=== PATIENT | male | born 1980 | race Caucasian/White ===

== ENCOUNTER 2021-09-18 13:10 | Inpatient (IN) | payer OTHER ==
[~2021-09-18] VITALS: Ht 165.1 cm; Wt 75.7 kg
[2021-09-18] MEDS ORDERED: LEVE250T4 PO (13:28)
[2021-09-18 14:02] LABS: BASOPHILS % (AUTO) 0.4 % (0.0-2.0); EOSINOPHILS % (AUTO) 0.1 % (1.0-6.0); HEMATOCRIT 40.8 % (41-53); HEMOGLOBIN 13.8 g/dL (13.5-17.5); LYMPHOCYTES # (AUTO) 2.3 K/uL (1.0-4.8); LYMPHOCYTES % (AUTO) 24.4 % (22.0-44.0); MEAN CORPUSCULAR HGB CONC 33.8 G/dL (31.0-37.0); MEAN CORPUSCULAR VOLUME 89 fL (80-100); MONOCYTES # (AUTO) 0.6 K/uL (0.1-1.0); MONOCYTES % (AUTO) 5.8 % (2.0-9.0); NEUTROPHILS # (AUTO) 6.7 K/uL (1.8-7.7); NEUTROPHILS % (AUTO) 69.3 % (40.0-70.0); PLATELET COUNT (AUTO) 349 K/uL (150-450); RED BLOOD CELL COUNT(AUTO) 4.59 MIL/uL (4.50-5.90); RED CELL DISTRIBUTION WIDTH 14.1 % (11.5-14.5)
[2021-09-18 14:14] LABS: ANION GAP 9 mmol/L (8-16); CALCIUM, TOTAL 9.3 mg/dL (8.8-10.5); CARBON DIOXIDE 26 mmol/L (22-29); CHLORIDE 106 mmol/L (98-107); CREATININE 0.97 mg/dL (0.60-1.30); GLOMERULAR FILTR. RATE CALC > 60 mL/min (>60); GLUCOSE,RANDOM 160 mg/dL (70-110); POTASSIUM 3.4 mmol/L (3.5-5.1); SODIUM SERUM 141 mmol/L (136-145); UREA NITROGEN, BLOOD 17 mg/dL (7-18)
[2021-09-18 14:14] LABS: COVID AG,FIA SOURCE NASOPHARYNGEAL
[2021-09-18 14:28] LABS: ALANINE AMINOTRANSFERASE 86 U/L (12-78); ALBUMIN 4.2 g/dL (3.4-5.0); ALKALINE PHOSPHATASE 87 U/L (46-116); ASPARTATE AMINOTRANSFERASE 28 U/L (15-37); BILIRUBIN,TOTAL 0.5 mg/dL (0.1-1.0); CHOL/HDL RATIO 5.1 (4.2-7.3); CHOLESTEROL 215 mg/dL (131-200); FREE T4 (FREE THYROXINE) 0.99 ng/dL (0.76-1.46); HDL CHOLESTEROL 42 mg/dL (40-60); LDL CHOL (CALC.) 145 mg/dL (0-130); THYROID STIMULATING HORMONE 1.33 uIU/mL (0.36-3.74); TOTAL PROTEIN, SERUM 8.9 g/dL (6.4-8.2); TRIGLYCERIDES 141 mg/dL (15-150)
[2021-09-18] MEDS ORDERED: POTASSIUM CHLORIDE 10% 40 MEQ/30 ML LIQUID UDCUP PO ONE (15:15)
[2021-09-18] MEDS ORDERED: ACETAMINOPHEN 325 MG TABLET PO PRN (15:30)
[2021-09-18] MEDS ORDERED: IPRATROPIUM BROMIDE 0.5 MG/2.5 ML NEB SOLUTION NEB PRN (15:30)
[2021-09-18] MEDS ORDERED: BISACODYL 10 MG RECTAL RECTAL SUPPOSITORY PR PRN (15:30)
[2021-09-18] MEDS ORDERED: ALBUTEROL SULFATE 2.5 MG/0.5 ML NEB SOLUTION NEB PRN (15:30)
[2021-09-18] MEDS ORDERED: MAGNESIUM HYDROXIDE SUSPENSION 30 ML UDCUP PO PRN (15:30)
[2021-09-18] MEDS ORDERED: DOCUSATE SODIUM 100 MG CAPSULE PO PRN (15:30)
[2021-09-18] MEDS ORDERED: 0.9% SODIUM CHLORIDE 10 ML SYRINGE IVP PRN (15:30)
[2021-09-18] MEDS ORDERED: ONDANSETRON HCL 4 MG/2 ML VIAL IVP PRN (15:30)
[2021-09-18 18:56] LABS: AMPHET/METH SCREEN,URINE NEGATIVE (NEGATIVE); BARBITURATE SCREEN, URINE NEGATIVE (NEGATIVE); BENZODIAZEPINES SCREEN,URINE NEGATIVE (NEGATIVE); CANNABINOID SCREEN,URINE NEGATIVE (NEGATIVE); COCAINE SCREEN,URINE NEGATIVE (NEGATIVE); METHADONE SCREEN, URINE NEGATIVE (NEGATIVE); OPIATE SCREEN,URINE NEGATIVE (NEGATIVE)
[2021-09-18 19:02] LABS: PHENCYCLIDINE SCREEN,URINE NEGATIVE (NEGATIVE)
[2021-09-18 20:16] VITALS: BP 130/79
[2021-09-18] MEDS: LevETIRAcetam 250 MG TABLET PO SCH (20:40)
[2021-09-19 04:09] VITALS: BP 133/83
[2021-09-19 07:17] VITALS: BP 120/86
[2021-09-19 08:03] LABS: BASOPHILS % (AUTO) 0.5 % (0.0-2.0); EOSINOPHILS % (AUTO) 0.7 % (1.0-6.0); HEMATOCRIT 40.3 % (41-53); HEMOGLOBIN 13.6 g/dL (13.5-17.5); LYMPHOCYTES # (AUTO) 2.8 K/uL (1.0-4.8); LYMPHOCYTES % (AUTO) 34.2 % (22.0-44.0); MEAN CORPUSCULAR HEMOGLOBIN 30.3 pg (26.0-34.0); MEAN CORPUSCULAR HGB CONC 33.8 G/dL (31.0-37.0); MEAN CORPUSCULAR VOLUME 90 fL (80-100); MONOCYTES # (AUTO) 0.7 K/uL (0.1-1.0); MONOCYTES % (AUTO) 8.2 % (2.0-9.0); NEUTROPHILS # (AUTO) 4.6 K/uL (1.8-7.7); NEUTROPHILS % (AUTO) 56.4 % (40.0-70.0); PLATELET COUNT (AUTO) 309 K/uL (150-450); RED BLOOD CELL COUNT(AUTO) 4.49 MIL/uL (4.50-5.90); RED CELL DISTRIBUTION WIDTH 14.1 % (11.5-14.5)
[2021-09-19] MEDS: LevETIRAcetam 250 MG TABLET PO SCH ×2 (08:14→20:22)
[2021-09-19 08:32] LABS: ALANINE AMINOTRANSFERASE 85 U/L (12-78); ALBUMIN 3.8 g/dL (3.4-5.0); ALKALINE PHOSPHATASE 85 U/L (46-116); ANION GAP 7 mmol/L (8-16); ASPARTATE AMINOTRANSFERASE 38 U/L (15-37); BILIRUBIN,TOTAL 0.7 mg/dL (0.1-1.0); CALCIUM, TOTAL 9.2 mg/dL (8.8-10.5); CARBON DIOXIDE 28 mmol/L (22-29); CHLORIDE 107 mmol/L (98-107); GLOMERULAR FILTR. RATE CALC > 60 mL/min (>60); GLUCOSE,RANDOM 104 mg/dL (70-110); POTASSIUM 4.5 mmol/L (3.5-5.1); SODIUM SERUM 142 mmol/L (136-145); TOTAL PROTEIN, SERUM 8.2 g/dL (6.4-8.2); UREA NITROGEN, BLOOD 14 mg/dL (7-18)
[2021-09-19 16:05] VITALS: BP 132/92
[2021-09-19] MEDS: BusPIRone HCL 5 MG TABLET PO SCH ×2 (16:27→20:19)
[2021-09-19] MEDS: ARIPiprazole 5 MG TABLET PO SCH (16:27)
[2021-09-19 19:45] VITALS: BP 139/94
[2021-09-19] MEDS: DOLUTEGRAVIR SODIUM 50 MG TABLET PO SCH (20:19)
[2021-09-20 04:10] VITALS: BP 137/95
[2021-09-20 07:40] VITALS: BP 146/97
[2021-09-20] MEDS: DOLUTEGRAVIR SODIUM 50 MG TABLET PO SCH (08:43)
[2021-09-20] MEDS: LevETIRAcetam 250 MG TABLET PO SCH ×2 (08:43→20:38)
[2021-09-20] MEDS: ARIPiprazole 5 MG TABLET PO SCH (08:43)
[2021-09-20] MEDS: BusPIRone HCL 5 MG TABLET PO SCH ×2 (08:43→20:38)
[2021-09-20 15:51] VITALS: BP 140/95
[2021-09-20 19:58] VITALS: BP 143/94
[2021-09-21 05:17] VITALS: BP 145/94
[2021-09-21 07:56] VITALS: BP 120/79
[2021-09-21] MEDS: ARIPiprazole 5 MG TABLET PO SCH (08:43)
[2021-09-21] MEDS: DOLUTEGRAVIR SODIUM 50 MG TABLET PO SCH (08:43)
[2021-09-21] MEDS: BusPIRone HCL 5 MG TABLET PO SCH ×2 (08:43→20:22)
[2021-09-21] MEDS: LevETIRAcetam 250 MG TABLET PO SCH ×2 (08:43→20:22)
[2021-09-21 15:42] VITALS: BP 126/91
[2021-09-21] MEDS ORDERED: ARIP5TAB37 PO ×2 (16:34→16:38)
[2021-09-21] MEDS ORDERED: DOLU50TA PO (16:38)
[2021-09-21] MEDS ORDERED: BUSP5TAB20 PO (16:38)
[2021-09-21 19:40] VITALS: BP 135/93
[2021-09-22 04:45] VITALS: BP 140/96
== END 2021-09-22 07:10 | DRG 885 ==
LOC: EMS 13:18 → 6S 18:37
PROVIDERS: ADMIT Internal Medicine; ATTEND Internal Medicine
DX: F25.1 Schizoaffective disorder, depressive type (principal); R45.851 Suicidal ideations; E87.6 Hypokalemia; G40.909 Epilepsy, unspecified, not intractable, without status epilepticus; Z20.822 Contact with and (suspected) exposure to COVID-19; F41.0 Panic disorder [episodic paroxysmal anxiety]; Z91.410 Personal history of adult physical and sexual abuse; Z85.841 Personal history of malignant neoplasm of brain; Z91.51 Personal history of suicidal behavior; Z79.899 Other long term (current) drug therapy
CPT/HCPCS: 80053; 80061; 84439; 84443; 85025; 99285; G0480